=== PATIENT | male | born 1970 | race African-American/Black ===

== ENCOUNTER 2020-06-12 13:26 | Emergency (ER) | payer OTHER ==
[~2020-06-12] VITALS: Ht 190 cm; Wt 116.0 kg
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
[2020-06-12] MEDS ORDERED: HYDR-3584 PO (13:50)
[2020-06-12] MEDS ORDERED: BACL10TA PO (13:50)
[2020-06-12] MEDS ORDERED: AMLO-352 PO (13:50)
[2020-06-12] MEDS ORDERED: ALBU90AE2 IH (13:50)
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
[2020-06-12] MEDS ORDERED: KETOROLAC 60 MG/2 ML VIAL IM ONE (14:30)
[2020-06-12] MEDS ORDERED: ORPHENADRINE 60 MG/2 ML (NORFLEX) AMP (ED ONLY) IM ONE (14:30)
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
[2020-06-12] MEDS ORDERED: NAPR-1071 PO (15:49)
[2020-06-12 16:00] VITALS: BP 170/100
== END 2020-06-12 16:00 | disposition home or self-care (01) ==
LOC: ER 13:28
DX: S16.1XXA Strain of muscle, fascia and tendon at neck level, initial encounter (principal); S14.3XXA Injury of brachial plexus, initial encounter; M50.20 Other cervical disc displacement, unspecified cervical region; R40.2410 Glasgow coma scale score 13-15, unspecified time; V89.2XXA Person injured in unspecified motor-vehicle accident, traffic, initial encounter
CPT/HCPCS: 70450; 72125; 72141

== ENCOUNTER 2020-07-08 18:38 | Emergency (ER) | payer OTHER ==
[~2020-07-08] VITALS: Ht 190.5 cm; Wt 116.0 kg
[~2020-07-08 18:38] MED LIST: ALBU90AE2 IH; AMLO-352 PO; BACL10TA PO; HYDR-3584 PO; NAPR-1071 PO
[2020-07-08 18:53] VITALS: BP 136/86
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
[2020-07-08] MEDS ORDERED: ACHD5005 PO (19:24)
[2020-07-08] MEDS ORDERED: PRD20T PO (19:24)
[2020-07-08] MEDS ORDERED: HYDROcodone/APAP 5 MG/325 MG (LORTAB) TAB PO ONE (19:30)
[2020-07-08] MEDS ORDERED: predniSONE 20 MG TAB PO ONE (19:30)
== END 2020-07-08 19:29 | disposition home or self-care (01) ==
LOC: EDUNIT# 18:38 → ER 18:43
DX: S14.3XXA Injury of brachial plexus, initial encounter (principal); J45.909 Unspecified asthma, uncomplicated; I10 Essential (primary) hypertension; F41.9 Anxiety disorder, unspecified; F17.210 Nicotine dependence, cigarettes, uncomplicated; X58.XXXA Exposure to other specified factors, initial encounter
CPT/HCPCS: 99283

== ENCOUNTER 2020-07-23 11:21 | Emergency (ER) | payer OTHER ==
[~2020-07-23] VITALS: Ht 190 cm; Wt 117.0 kg
[~2020-07-23 11:21] MED LIST changes: +ACHD5005 PO; +PRD20T PO
--- NOTE | 2020-07-23 11:40 | NUR ---
STORMY INTO SEE THE PT.
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
[2020-07-23] MEDS ORDERED: ORPHENADRINE 60 MG/2 ML (NORFLEX) AMP (ED ONLY) IM ONE (12:45)
--- NOTE | 2020-07-23 13:21 | Diagnostic Imaging Report ---
INDICATION: Low back pain Three views of the lumbosacral spine show normal height and alignment of the vertebral bodies. There is mild disc space narrowing and spondylosis at L5-S1. There are mild degenerated facets at L5. There is no fracture. IMPRESSION: There are degenerative changes present with no acute abnormality seen. Dictated by: Dictated on workstation # [id number]
[2020-07-23] MEDS ORDERED: PRD20T PO (13:24)
[2020-07-23] MEDS ORDERED: CYCL10TA9 PO (13:24)
--- NOTE | 2020-07-23 13:25 | NUR ---
STORMY INTO SEE THE PT.
[2020-07-23] MEDS ORDERED: predniSONE 20 MG TAB PO ONE (14:00)
[2020-07-23 14:10] VITALS: BP 174/116
== END 2020-07-23 14:10 | disposition home or self-care (01) ==
LOC: EDUNIT# 11:21 → ER 11:24
DX: M54.12 Radiculopathy, cervical region (principal); G89.29 Other chronic pain; M54.9 Dorsalgia, unspecified; I10 Essential (primary) hypertension; F41.9 Anxiety disorder, unspecified; J45.909 Unspecified asthma, uncomplicated; Z79.52 Long term (current) use of systemic steroids; Z79.891 Long term (current) use of opiate analgesic
CPT/HCPCS: 36415; 72100; 82607

== ENCOUNTER 2020-08-15 12:54 | Emergency (ER) | payer OTHER ==
[~2020-08-15] VITALS: Ht 190.5 cm; Wt 117.9 kg
[~2020-08-15 12:54] MED LIST changes: +CYCL10TA9 PO
[2020-08-15 13:17] VITALS: BP 136/75
[2020-08-15] MEDS ORDERED: ORPHENADRINE 60 MG/2 ML (NORFLEX) AMP (ED ONLY) IM ONE (13:30)
[2020-08-15] MEDS ORDERED: KETOROLAC 60 MG/2 ML VIAL IM ONE (13:30)
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
[2020-08-15 13:47] LABS: BILIRUBIN,URINE NEGATIVE (NEGATIVE); CLARITY,URINE CLEAR; COLOR,URINE YELLOW; GLUCOSE, URINE (UA) NEGATIVE (NEGATIVE); KETONES,URINE NEGATIVE (NEGATIVE); LEUKOCYTE ESTERASE ,URINE NEGATIVE (NEGATIVE); NITRITE,URINE NEGATIVE (NEGATIVE); PROTEIN,URINE NEGATIVE (NEGATIVE)
[2020-08-15 13:54] LABS: BACTERIA,URINE NEGATIVE /HPF; RBC,URINE 0-2 /HPF; SQUAMOUS EPITHELIAL CELL,UR RARE /HPF
[2020-08-15 14:00] LABS: AMPHETAMINE SCREEN, URINE NEGATIVE (NEGATIVE); BARBITURATE SCREEN URINE NEGATIVE (NEGATIVE); BENZODIAZEPINES SCREEN URINE NEGATIVE (NEGATIVE); CANNABINOID SCREEN, URINE NEGATIVE (NEGATIVE); COCAINE SCREEN URINE NEGATIVE (NEGATIVE); METHADONE STAT NEGATIVE (NEGATIVE); METHAMPHETAMINE SCREEN URINE S NEGATIVE (NEGATIVE); OPIATE SCREEN URINE NEGATIVE (NEGATIVE); OXYCODONE STAT NEGATIVE (NEGATIVE); PROPOXYPHENE STAT NEGATIVE (NEGATIVE); TRICYCLIC ANTIDEPRESSANTS SCRE NEGATIVE (NEGATIVE)
[2020-08-15] MEDS ORDERED: ACHD5005 PO (14:52)
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
== END 2020-08-15 15:12 | disposition home or self-care (01) ==
LOC: EDUNIT# 12:54 → ER 12:56
DX: M54.16 Radiculopathy, lumbar region (principal); J45.909 Unspecified asthma, uncomplicated; F41.9 Anxiety disorder, unspecified; G89.29 Other chronic pain; M54.9 Dorsalgia, unspecified; I10 Essential (primary) hypertension; F17.210 Nicotine dependence, cigarettes, uncomplicated; Z79.52 Long term (current) use of systemic steroids; Z79.891 Long term (current) use of opiate analgesic
CPT/HCPCS: 72148; 80306; 81000

== ENCOUNTER 2020-10-01 07:57 | Emergency (ER) | payer OTHER ==
[~2020-10-01] VITALS: Ht 190 cm; Wt 122.0 kg
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
[2020-10-01] MEDS ORDERED: ORPHENADRINE 60 MG/2 ML (NORFLEX) AMP (ED ONLY) IM ONE (09:30)
[2020-10-01] MEDS ORDERED: KETOROLAC 60 MG/2 ML VIAL IM ONE (09:30)
[2020-10-01] MEDS ORDERED: BUPIVACAINE 0.25% 30 ML (SENSORCAINE) VIAL INJ ONE (09:30)
[2020-10-01] MEDS ORDERED: LIDOCAINE 1% INJ 20 ML 20 ML VIAL INJ ONE (09:30)
[2020-10-01] MEDS ORDERED: BUPIVACAINE 0.5% 30 ML (SENSORCAINE) VIAL ONE (09:33)
[2020-10-01 10:30] VITALS: BP 128/90
== END 2020-10-01 10:30 | disposition home or self-care (01) ==
LOC: EDUNIT# 07:57 → ER 07:58
DX: M54.12 Radiculopathy, cervical region (principal); G89.4 Chronic pain syndrome; T42.6X6A Underdosing of other antiepileptic and sedative-hypnotic drugs, initial encounter; I10 Essential (primary) hypertension; J45.909 Unspecified asthma, uncomplicated; F17.210 Nicotine dependence, cigarettes, uncomplicated; Z91.14 Patient's other noncompliance with medication regimen; Z79.52 Long term (current) use of systemic steroids; Z79.899 Other long term (current) drug therapy; Z79.891 Long term (current) use of opiate analgesic
CPT/HCPCS: 99284